=== PATIENT | female | born 1950 | race Caucasian/White ===

== ENCOUNTER 2018-08-29 14:29 | Outpatient (CLI) | payer MEDICARE, OTHER ==
[2018-08-29 16:02] LABS: eGFR (Non-African) > 60
== END 2018-08-29 14:30 ==
LOC: LAB 14:29
PROVIDERS: ATTEND Family Medicine
DX: E55.9 Vitamin D deficiency, unspecified (principal); E03.9 Hypothyroidism, unspecified; N18.1 Chronic kidney disease, stage 1
CPT/HCPCS: 36415; 80053; 82306; 84443

== ENCOUNTER 2018-11-30 10:28 | Outpatient (CLI) | payer MEDICARE, OTHER ==
[2018-11-30 11:02] LABS: APPEARANCE,URINE CLEAR (CLEAR); COLOR,URINE YELLOW (YELLOW)
[2018-11-30 11:03] LABS: OCCULT BLOOD,URINE NEGATIVE (NEGATIVE); PH URINE 5.5 (5.0 - 8.0); UROBILINOGEN URINE 0.2 Eu (0.2-1.0)
[2018-11-30 11:19] LABS: eGFR (Non-African) > 60
[2018-11-30 12:51] LABS: BASOPHILS % 0.7 (0.0-1.5); EOSINOPHILS % 5.1 % (0.0-6.8); MEAN CORPUSCULAR HEMOGLOBIN 30.6 pg (28.0-34.0); MONOCYTES % 6.1 % (0.0-11.0); NEUTROPHILS # 4.8 # k/uL (1.4-7.7)
[2018-12-01 10:27] LABS: PROTEIN mg/dL 19 mg/dL
== END 2018-11-30 10:30 ==
LOC: LAB 10:28
PROVIDERS: ATTEND Internal Medicine Nephrology
DX: I10 Essential (primary) hypertension (principal); N18.2 Chronic kidney disease, stage 2 (mild)
CPT/HCPCS: 36415; 80053; 81002; 82570; 83970; 84156; 85025

== ENCOUNTER 2018-12-06 13:44 | Outpatient (CLI) | payer MEDICARE, OTHER | END 2018-12-06 13:46 | LOC: NEPHRO 13:44 | PROVIDERS: ATTEND Internal Medicine Nephrology | DX: I12.9 Hypertensive chronic kidney disease with stage 1 through stage 4 chronic kidney disease, or unspecified chronic kidney disease (principal); N18.9 Chronic kidney disease, unspecified; E21.3 Hyperparathyroidism, unspecified | CPT/HCPCS: G0463 ==

== ENCOUNTER 2019-02-11 12:58 | Observation (INO) | payer MEDICARE, OTHER ==
[2019-02-11] MEDS ORDERED: ASPIRIN 81 MG CHEW TAB PO ONE (13:02)
--- NOTE | 2019-02-11 13:02 | ED Physician Documentation ---
General Adult - HISTORIAN Historian: patient - HPI Stated Complaint: chest pain Chief Complaint: General Adult Onset: minutes (20 min) Timing: still present Severity: moderate Further Comments: yes (Pt is a 68 yo female with chest pain that radiates to the L arm with tingling. Pain is 6/10 in severity. Pt has had nausea. No sob. Pain occurred spontaeously at rest, while sitting. Pt denies heart hx, but has had CVA and carotid endarterectomy 2 yrs ago. Pt takes Metoprolol for HTN and recently had her dose reduced due to bradycardia.) - ROS CONST: no problems EYES/ENT: none CVS/RESP: chest pain GI/: nausea MS/SKIN/LYMPH: none - PAST HX Past History: other (Gout, HTN, Hypercalcemia, Hypothyroidism, GERD, dyslipidemia, CKD, CVA, ) Surgeries/Procedures: other (carotid endarterectomy) Allergies/Adverse Reactions: Allergies Allergy/AdvReac Type Severity Reaction Status Date / Time atorvastatin calcium Allergy Verified 02/11/19 13:20 [From Lipitor] codeine Allergy Verified 02/11/19 13:20 morphine Allergy Verified 02/11/19 13:20 ondansetron HCl Allergy Verified 02/11/19 13:20 [From Zofran (as hydrochloride)] penicillin G Allergy Verified 02/11/19 13:20 Sulfa (Sulfonamide Allergy Verified 02/11/19 13:20 Antibiotics) laytex AdvReac Unknown Rash Uncoded 02/11/19 13:20 Home Medications: Ambulatory Orders Medication Instructions Recorded Aspirin [Aspirin Ec] 325 mg PO DAILY u2 01/25/19 - SOCIAL HX Smoking History: non-smoker - FAMILY HX Family History: No - REVIEWED ASSESSMENTS Nursing Assessment Reviewed: Yes Vitals Reviewed: Yes Progress - Progress Progress: Nitro 0.4 mg x 1 Pt had ASA at home. pain improved with nitro pain 6 --> 1 admit to ER doctor for r/o DE - EKG/XRAY/CT EKG: rhythm (sinus bradycardia, otherwise normal EKG, minimal artifact) XRAY: chest (no active disease) - Additional EKG/XRAY/Consults EKG #2: rhythm (sinus bradycardia, non-specific T-wave changes) General Adult Physical Exam - PHYSICAL EXAM GENERAL APPEARANCE: moderate distress EENT: pharynx normal NECK: normal inspection, supple RESPIRATORY: no resp distress, chest non-tender, breath sounds normal CVS: no murmur, bradycardia ABDOMEN: soft, no organomegaly, normal bowel sounds BACK: normal inspection, no CVA tenderness SKIN: warm/dry, normal color EXTREMITIES: non-tender, normal range of motion, no evidence of injury NEURO: oriented X3, motor nml, sensation nml Discharge Clincal Impression: Chest pain Qualifiers: Chest pain type: unspecified Qualified Code(s): R07.9 - Chest pain, unspecified Condition: Stable Disposition: 09 ADMITTED INPATIENT Decision to Admit: [id number] Decision Time: 17:30
[2019-02-11] MEDS ORDERED: NITROGLYCERIN 0.4 MG TAB.SUBL SL ONE (13:16)
[2019-02-11 13:28] LABS: BASOPHILS % 0.6 (0.0-1.5); EOSINOPHILS % 4.1 % (0.0-6.8); MEAN CORPUSCULAR HEMOGLOBIN 30.4 pg (28.0-34.0); MONOCYTES % 5.6 % (0.0-11.0); NEUTROPHILS # 4.7 # k/uL (1.4-7.7)
[2019-02-11 13:29] LABS: eGFR (Non-African) > 60
--- NOTE | 2019-02-11 13:49 | Diagnostic Imaging Report ---
NORBERTO HASKINS [facility] [id number] [facility] [address] [place], [place]. [address] Report Submission Date: Feb 11, 2019 1:48:22 PM CDT Patient Study Name: ALEXANDR MEADE Date: Feb 11, 2019 1:07:04 PM CDT Modality Type: DX Gender: F Description: CHEST 1VIEW : 50 Institution: [facility] Physician: NORBERTO HASKINS Portable chest History: Chest pain Portable chest dated February 11, 2019 is without prior radiographs for comparison. The cardiomediastinal silhouette is normal. Pulmonary vascularity is normal. Lungs are clear. Impression: No active disease. Electronically signed on Feb 11, 2019 1:48:22 PM CDT by: Kristal ROLLE
[2019-02-11] MEDS ORDERED: ALLOPURINOL 100 MG TABLET PO SCH (16:49)
[2019-02-11 17:54] VITALS: BMI 28.5
[2019-02-11] MEDS ORDERED: SALINE FLUSH 10 ML DISP.SYRIN IV PRN (19:47)
--- NOTE | 2019-02-12 06:27 | Discharge Summary ---
Discharge Summary - Discharge Sumary Date: 02/12/19 History of Present Illness: (Pt is a 68 yo female with chest pain that radiates to the L arm with tingling. Pain is 6/10 in severity. Pt has had nausea. No sob. Pain occurred spontaeously at rest, while sitting. Pt denies heart hx, but has had CVA and carotid endarterectomy 2 yrs ago. Pt takes Metoprolol for HTN and recently had her dose reduced due to bradycardia.) Condition at Discharge: Stable Home Medications: Ambulatory Orders Medication Instructions Recorded Aspirin [Aspirin Ec] 325 mg PO DAILY u2 01/25/19 Consultations this Visit: None Procedures this Visit: None Allergies/Adverse Reactions: Allergies Allergy/AdvReac Type Severity Reaction Status Date / Time atorvastatin calcium Allergy Verified 02/11/19 13:20 [From Lipitor] codeine Allergy Verified 02/11/19 13:20 morphine Allergy Verified 02/11/19 13:20 ondansetron HCl Allergy Verified 02/11/19 13:20 [From Zofran (as hydrochloride)] penicillin G Allergy Verified 02/11/19 13:20 Sulfa (Sulfonamide Allergy Verified 02/11/19 13:20 Antibiotics) laytex AdvReac Unknown Rash Uncoded 02/11/19 13:20 Discharge Summary: Patient is a 68-year-old female who was admitted through the ER for chest pain that radiated down the left arm. I spoke with patient at 19:00 the night of admission and she was experiencing no discomfort- denied any chest pain or shortness of breath- explained that we would complete serial cardiac enzymes and repeat EKGs. On the morning of discharge patient still denies any chest pain or shortness of breath. Labs and EKG are WNL. She feels ready/comfortable to go home. Hospital Course: Serial cardiac enzymes and eKGs normal - Final Diagnosis (1) Chest pain Problems: Patient is asymptomatic Right or Left: Right
[2019-02-12] MEDS ORDERED: PANTOPRAZOLE SODIUM 40 MG TABLET.DR ONE (06:44)
[2019-02-12] MEDS ORDERED: LEVOTHYROXINE SODIUM 50 MCG TABLET ONE (06:44)
[2019-02-12] MEDS ORDERED: LEVOTHYROXINE SODIUM 25 MCG TABLET ONE ×2 (06:45→06:47)
[2019-02-12] MEDS ORDERED: PANTOPRAZOLE SODIUM 40 MG TABLET.DR PO SCH (07:00)
[2019-02-12] MEDS ORDERED: LEVOTHYROXINE SODIUM 25 MCG TABLET PO SCH (07:00)
[2019-02-12] MEDS ORDERED: ASPIRIN 325 MG TABLET ONE (07:46)
[2019-02-12] MEDS ORDERED: CLOPIDOGREL BISULFATE 75 MG TABLET ONE (07:46)
[2019-02-12 08:42] LABS: APPEARANCE,URINE CLEAR (CLEAR); COLOR,URINE YELLOW (YELLOW); OCCULT BLOOD,URINE NEGATIVE (NEGATIVE); UROBILINOGEN URINE 0.2 Eu (0.2-1.0)
[2019-02-12] MEDS ORDERED: CLOPIDOGREL BISULFATE 75 MG TABLET PO SCH (09:00)
[2019-02-12] MEDS ORDERED: ASPIRIN EC 325 MG TABLET.DR PO SCH (09:00)
[2019-02-12 09:03] VITALS: BP 126/64
== END 2019-02-12 08:50 | disposition home or self-care (01) ==
LOC: ED 12:58 → SOUTH 17:13
PROVIDERS: ADMIT Emergency Medicine; ATTEND Emergency Medicine
DX: R07.89 Other chest pain (principal); R20.2 Paresthesia of skin; I10 Essential (primary) hypertension
CPT/HCPCS: 36415; 71045; 80053; 81002; 82550; 82553; 83880; 84484; 85025; 85379; 93005; 99284; A9270; G0378; 99217

== ENCOUNTER 2019-02-20 13:53 | Outpatient (CLI) | payer MEDICARE, OTHER ==
[2019-02-20 14:16] LABS: BASOPHILS % 0.8 (0.0-1.5); EOSINOPHILS % 4.6 % (0.0-6.8); MONOCYTES % 6.8 % (0.0-11.0); NEUTROPHILS # 4.1 # k/uL (1.4-7.7)
[2019-02-20 14:21] LABS: eGFR (Non-African) 44
[2019-02-21 13:25] LABS: OCCULT BLOOD,URINE NEGATIVE (NEGATIVE); PH URINE 5.5 (5.0 - 8.0); UROBILINOGEN URINE 0.2 Eu (0.2-1.0)
== END 2019-02-20 13:55 ==
LOC: LAB 13:53
PROVIDERS: ATTEND Internal Medicine Nephrology
DX: N18.9 Chronic kidney disease, unspecified (principal); I10 Essential (primary) hypertension; M10.9 Gout, unspecified
CPT/HCPCS: 36415; 80053; 81002; 84550; 85025

== ENCOUNTER 2019-02-28 14:13 | Outpatient (CLI) | payer MEDICARE, OTHER | END 2019-02-28 14:15 | LOC: NEPHRO 14:13 | PROVIDERS: ATTEND Internal Medicine Nephrology | DX: N17.9 Acute kidney failure, unspecified (principal); N14.1 Nephropathy induced by other drugs, medicaments and biological substances; T50.2X5A Adverse effect of carbonic-anhydrase inhibitors, benzothiadiazides and other diuretics, initial encounter; I10 Essential (primary) hypertension | CPT/HCPCS: G0463 ==

== ENCOUNTER 2019-07-04 14:44 | Outpatient (CLI) | payer MEDICARE, OTHER | END 2019-07-04 15:10 | LOC: NEPHRO 14:44 | PROVIDERS: ATTEND Internal Medicine Nephrology | DX: N28.9 Disorder of kidney and ureter, unspecified (principal); I10 Essential (primary) hypertension; R94.6 Abnormal results of thyroid function studies | CPT/HCPCS: 99214 ==

== ENCOUNTER 2019-07-05 11:56 | Outpatient (CLI) | payer MEDICARE, OTHER | END 2019-07-05 11:59 | LOC: LAB 11:56 | PROVIDERS: ATTEND Internal Medicine Nephrology | DX: E83.52 Hypercalcemia (principal) | CPT/HCPCS: 36415; 82340; 82570; 84155; 84156; 84165; 84166 ==

== ENCOUNTER 2019-08-07 11:57 | Outpatient (CLI) | payer MEDICARE, OTHER ==
[2019-08-07 13:08] LABS: HDL 49 mg/dL (>40); eGFR (Non-African) > 60
== END 2019-08-07 12:00 ==
LOC: LAB 11:57
PROVIDERS: ATTEND Family Medicine
DX: I10 Essential (primary) hypertension (principal); E03.9 Hypothyroidism, unspecified; E78.1 Pure hyperglyceridemia
CPT/HCPCS: 36415; 80053; 80061; 84443

== ENCOUNTER 2019-08-20 20:44 | Emergency (ER) | payer MEDICARE, OTHER ==
--- NOTE | 2019-08-20 21:06 | ED Physician Documentation ---
Skin Rash - HISTORIAN Historian: patient - HPI Chief Complaint: Allergic Reaction Additional Information: Patient is a 69 year old female who states that she received a flu shot on Wednesday (2 days ago) at [facility] and she noticed some redness this morning. She states it is really sore so she thought she would have it looked at. Injection site is way below the deltoid (not in the right position). Patient has been using ice to the area. Denies any fever or chills; neurovascularly intact. Onset: days ago Timing: still present Duration: persistent since Location: LUE Quality: painful Identified Cause?: Yes (misplaced immunization) When Did Symptoms Start: 08/20/19 Where: home Context: Medication Exposure: none Context: Food Exposure: none Context: Other Exposure: other (injection site) - ROS CONST: none CVS/RESP: none EYES/ENT: none GI/: none MS/SKIN/LYMPH: other (avulsion to the right knee) NEURO/PSYCH: none - PAST HX Past History: hypertension, other (hypothyroid, gout, GERD) Other History: other (irritation from injection) Immunizations: influenza, UTD Allergies/Adverse Reactions: Allergies Allergy/AdvReac Type Severity Reaction Status Date / Time atorvastatin calcium Allergy Verified 08/20/19 21:18 [From Lipitor] codeine Allergy Verified 08/20/19 21:18 morphine Allergy Verified 08/20/19 21:18 ondansetron HCl Allergy Verified 08/20/19 21:18 [From Zofran (as hydrochloride)] penicillin G Allergy Verified 08/20/19 21:18 Sulfa (Sulfonamide Allergy Verified 08/20/19 21:18 Antibiotics) laytex AdvReac Unknown Rash Uncoded 08/20/19 21:18 Home Medications: Ambulatory Orders Medication Instructions Recorded Aspirin [Aspirin Ec] 325 mg PO DAILY u2 01/25/19 - SOCIAL HX Smoking History: non-smoker Alcohol Use: none Drug Use: none - FAMILY HX Family History: none - VITAL SIGNS Vital Signs: Vital Signs Temp Pulse Resp BP Pulse Ox 98.6 F 63 18 141/64 98 08/20/19 21:23 08/20/19 21:23 08/20/19 21:23 08/20/19 21:23 08/20/19 21:23 - REVIEWED ASSESSMENTS Nursing Assessment Reviewed: Yes Vitals Reviewed: Yes Skin Rash Physical Exam - EXAM General Appearance: alert, mild distress Skin: warm,dry, other (avulsion to the right knee s/p fall) Location: extremities Character: other (avulsion to the right knee) Symptoms: warmth, tenderness Extremities: nml ROM EENT: eyes nml inspection, lips nml, pharynx nml Neck: trachea midline Respiratory: breath sounds normal CVS: heart sounds nml Neuro/Psych: oriented x3, motor nml, sensation nml, speech abnml (normal- brain bleed in March 2019) Discharge Clincal Impression: Localized skin reaction from immunizatio Referrals: Haider Sen MD [Primary Care Provider] - 2 Days Additional Instructions: Take Benadryl 25mg by mouth every 6 hours as needed for itching May apply Benadryl cream to the affected site May also use cold packs Follow up with PCP as needed Condition: Good Disposition: 01 HOME, SELF-CARE Decision to Admit: NO Decision Time: 22:05
[2019-08-20 21:25] VITALS: BP 141/64
== END 2019-08-20 21:25 | disposition home or self-care (01) ==
LOC: ED 20:44
DX: L27.1 Localized skin eruption due to drugs and medicaments taken internally (principal); T50.B95A Adverse effect of other viral vaccines, initial encounter
CPT/HCPCS: 99281; 99282